=== PATIENT | male | born 1970 | race Caucasian/White ===

== ENCOUNTER → 2019-05-29 | Outpatient (CLI) | payer BC ==
[~2019-05-29] MED LIST: AMOXIL 875 MG875 M1 PO; ESCITALOPRA5 MG/5 ML PO; NEURONTIN100 MG PO
== END ==
LOC: M.ULTRA 13:24
DX: R59.1 Generalized enlarged lymph nodes (principal); Z80.9 Family history of malignant neoplasm, unspecified

== ENCOUNTER → 2019-06-09 | Outpatient (CLI) | payer BC | LOC: M.PC 01:40 | DX: M47.816 Spondylosis without myelopathy or radiculopathy, lumbar region (principal); M51.36 Other intervertebral disc degeneration, lumbar region ==

== ENCOUNTER → 2020-12-06 | Outpatient (CLI) | payer BC | LOC: M.MRI 14:11 | PROVIDERS: ATTEND Family Medicine | DX: S83.241A Other tear of medial meniscus, current injury, right knee, initial encounter (principal); G89.29 Other chronic pain; X58.XXXA Exposure to other specified factors, initial encounter; Y93.89 Activity, other specified; Y92.89 Other specified places as the place of occurrence of the external cause; Y99.8 Other external cause status ==

== ENCOUNTER → 2020-12-21 | Outpatient (CLI) | payer BC | LOC: M.LAB 09:26 | PROVIDERS: ATTEND Orthopaedic Surgery | DX: Z01.812 Encounter for preprocedural laboratory examination (principal); Z20.822 Contact with and (suspected) exposure to COVID-19 ==

== ENCOUNTER → 2021-01-20 | Outpatient (CLI) | payer BC | LOC: M.ULTRA 07:57 | PROVIDERS: ATTEND Nurse Practitioner | DX: R22.1 Localized swelling, mass and lump, neck (principal); R50.9 Fever, unspecified ==

== ENCOUNTER → 2021-02-02 | Outpatient (CLI) | payer BC ==
--- NOTE | 2021-02-07 13:08 | PATH ---
[address] [address] PATHOLOGY RPT PROCEDURE Name: GOMEZFLACOREY Room: [facility]IANA Duque#: [id number] Admission: 02/02/21 Date of : 74 Discharge: Report #: [id number] Path Case #: [id number] [facility] Accession Number: [id number] . 01 Material submitted: . neck - LEFT NECK LYMPH NODE BIOPSY. Modifiers: left . 01 Clinician provided ICD-10: R22.1 . 01 Clinical history: . ENLARGED LYMPH NODE LEFT NECK 3.4 X 4.0 X 1.6 CM . 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 SEE COMMENT. . (IDANIA:eunice; 02/04/2021) [facility] 02/04/2021 1019 Local . 02 Comment: Essentially all of the submitted tissue represents malignancy. Properly-controlled immunohistochemical studies performed on A1 characterize the neoplastic cells as follows: . P40: Positive P16: Positive . An oropharyngeal primary should be considered in the clinical differential. Reviewed with Dr. Alee Easley on 02/04/2021. Silva Wu notified at approximately 1145 on 02/04/2021. . (IDANIA:mm; 02/04/2021) . 02 Electronically signed: . Binu Moreno MD, Pathologist NPI- [id number] . 01 Gross description: . Received in formalin labeled "[place] and lymph node biopsy". Additional information from the requisition states "enlarged lymph node-left neck". Received are multiple white-yellow lymph node fragments ranging from 0.3-0.5 cm in length and 0.1 cm in diameter. The specimen is entirely submitted in cassette A1.([facility]; 02/02/2021) . [facility] 02/02/[address] [place] [address] PATHOLOGY RPT PROCEDURE Name: [place] Room: [facility]#: [id number] Admission: 02/02/21 Date of : 74 Discharge: Report #: [id number] Path Case #: [id number] . 02 Pathologist provided ICD-10: C77.0 . 02 CPT . 192404, [id number], [id number] Specimen Comment: A courtesy copy of this report has been sent to [phone] Specimen Comment: Report sent to / DR CORRAL Specimen Comment: Report sent to Performed at: [address], [place] [id number] MD Gagan Burgos MD Phone: [phone] Performed at: 02 [facility] [address], [place], [place] [id number] MD Binu Moreno MD Phone: [phone]
== END | disposition home or self-care (01) ==
LOC: M.ULTRA 08:01
PROVIDERS: ATTEND Nurse Practitioner
DX: C77.0 Secondary and unspecified malignant neoplasm of lymph nodes of head, face and neck (principal); Z79.899 Other long term (current) drug therapy

== ENCOUNTER → 2021-02-10 | Outpatient (CLI) | payer BC | LOC: M.CT 12:53 | PROVIDERS: ATTEND Nurse Practitioner | DX: C44.42 Squamous cell carcinoma of skin of scalp and neck (principal); R59.0 Localized enlarged lymph nodes; R91.8 Other nonspecific abnormal finding of lung field; R89.7 Abnormal histological findings in specimens from other organs, systems and tissues ==

== ENCOUNTER → 2021-07-19 | Outpatient (CLI) | payer BC | LOC: M.ULTRA 09:49 | PROVIDERS: ATTEND Specialist | DX: R19.09 Other intra-abdominal and pelvic swelling, mass and lump (principal) ==

== ENCOUNTER → 2021-08-05 | Outpatient (CLI) | payer BC | LOC: M.CT 12:35 | PROVIDERS: ATTEND Specialist | DX: K40.20 Bilateral inguinal hernia, without obstruction or gangrene, not specified as recurrent (principal); K57.30 Diverticulosis of large intestine without perforation or abscess without bleeding; R19.09 Other intra-abdominal and pelvic swelling, mass and lump ==

== ENCOUNTER → 2021-08-24 | Outpatient (CLI) | payer BC | LOC: M.LAB 13:11 | PROVIDERS: ATTEND Internal Medicine Gastroenterology | DX: Z01.812 Encounter for preprocedural laboratory examination (principal); Z20.822 Contact with and (suspected) exposure to COVID-19 ==